=== PATIENT | female | born 1990 | race Caucasian/White ===

== ENCOUNTER 2019-11-06 06:04 | Emergency (ER) | payer OTHER ==
[~2019-11-06] VITALS: Ht 172.7 cm; Wt 77.3 kg
[2019-11-06 06:10] VITALS: TEMP 98.1
[2019-11-06 06:41] LABS: COLLECTION METHOD CLEAN CATCH
[2019-11-06 06:56] LABS: BASO # 0.1 (0.0-0.2); BASO % 0.7 % (0.0-2.0); EOS % 0.3 % (0-4.0); GRAN # 6.8 (1.4-6.5); GRAN % 73.8 % (42.2-75.2); HEMOGLOBIN 12.2 g/dl (12.5-16.0); LYMPH # 1.7 (1.2-3.4); MEAN CELL VOLUME 88 fl (80.0-100.0); MEAN CORPUSCULAR HEMOGLOBIN 30 pg (27.0-31.0); MEAN CORPUSCULAR HGB CONC 33 g/dl (33.0-37.0); MEAN PLATELET VOLUME 10.9 fl (7.4-10.4); MONO # 0.6 (0.1-0.6); MONO % 6.9 % (1.7-9.3); PLATELET COUNT 232 K/mm3 (130-400); RED BLOOD COUNT 4.14 M/mm3 (4.10-5.30); REDCELL DISTRIBUTION WIDTH-CV 13.7 % (11.5-14.5)
[2019-11-06 07:07] LABS: HEMATOCRIT 36.6 % (37.0-47.0)
[2019-11-06 07:12] LABS: ALBUMIN 3.9 gm/dL (3.5-5.0); BILIRUBIN,TOTAL 0.6 mg/dL (0.0-1.0); CALCIUM 8.7 mg/dL (8.4-10.2); CREATININE, serum 0.87 (0.52-1.25); POTASSIUM 3.5 mmol/L (3.4-5.0); TOTAL PROTEIN 7.3 gm/dL (6.4-8.2)
[2019-11-06] MEDS ORDERED: BUSPAR DIVIDOSE15 MG PO (07:13)
[2019-11-06 07:25] LABS: MUCOUS Present /lpf; PH 5 (5-8); URINE APPEARANCE Hazy; URINE BACTERIA Occasional /hpf; URINE BILIRUBIN Negative (NEGATIVE); URINE BLOOD 1+ (NEGATIVE); URINE COLOR Yellow; URINE GLUCOSE Negative (NEGATIVE); URINE KETONE 1+ (NEGATIVE); URINE LEUKOCYTE ESTERASE 1+ (NEGATIVE); URINE NITRATE Negative (NEGATIVE); URINE PROTEIN(semi-quant) Negative (NEGATIVE); URINE UROBILINOGEN Negative (NEGATIVE)
[2019-11-06 07:42] LABS: THYROID STIMULATING HORMONE 5.78 uIU/mL (0.465-4.680)
[2019-11-06] MEDS ORDERED: XANAX 0.5MG0.5 MG PO (08:24)
[2019-11-06 12:50] VITALS: BP 132/82; PULSE 110
== END 2019-11-06 12:52 | disposition home or self-care (01) ==
LOC: COL.ER 06:04
PROVIDERS: Emergency Medicine
DX: F41.9 Anxiety disorder, unspecified (principal); Z86.79 Personal history of other diseases of the circulatory system; Z79.899 Other long term (current) drug therapy
CPT/HCPCS: J1200; J1630; J2060; J7030; J7040